=== PATIENT | female | born 1985 | race Caucasian/White ===

== ENCOUNTER 2017-07-06 12:39 | Emergency (ER) | payer OTHER ==
[~2017-07-06] VITALS: Ht 180.3 cm; Wt 68.0 kg
[~2017-07-06 12:39] MED LIST: ACETAMINOPHEN325 M1 PO; AZITHROMYCIN250 MG PO; BACTRIM DS TAB1 EACH PO; CELEXA20 MG PO; CEPHALEXIN500 MG PO; CITALOPRAM HBR20 MG PO; CITALOPRAM HBR40 MG PO; CYCLOBENZAPRINE10 MG PO; DAYPRO600 MG PO; DOXYCYCLINE HY100 MG PO; FLEXERIL10 MG PO; FLONASE ALLERG9.9 ML NS; GABAPENTIN300 MG PO; IBUPROFEN600 MG PO; KEFLEX500 MG PO; MIRTAZAPINE15 MG PO; NAPROXEN500 MG PO; NEURONTIN100 MG PO; NORCO 5-325 TA1 EACH PO; PENICILLIN V P500 MG PO; PERCOCET 5-3251 EACH PO; PRENA1 TRUE CO1 EACH PO; PROMETHAZINE HC25 M1 PO; PYRIDIUM200 MG PO; ROBAXIN-750750 MG PO; SOMA350 MG PO; TRAMADOL HCL50 MG PO; TYLENOL WITH C1 EACH PO; ULTRAM50 MG PO; VICODIN 5-3001 EACH PO; ZOFRAN ODT8 MG PO
[2017-07-06] MEDS ORDERED: ZOFRAN ODT4 MG PO (14:03)
== END 2017-07-06 14:25 | disposition home or self-care (01) ==
LOC: ED 12:39
DX: R11.2 Nausea with vomiting, unspecified (principal); F32.9 Major depressive disorder, single episode, unspecified; F17.200 Nicotine dependence, unspecified, uncomplicated
CPT/HCPCS: 80053; 81001; 82150; 83690; 84703; 85025; 96361; 96374; 96375; 99283; J1170; J2405; J7030

== ENCOUNTER 2018-10-09 09:41 | Emergency (ER) | payer OTHER ==
[~2018-10-09] VITALS: Ht 180.3 cm; Wt 72.6 kg
[~2018-10-09 09:41] MED LIST changes: +AMOXICILLIN500 MG PO; +ZOFRAN ODT4 MG PO
--- OUTSIDE RECORDS SUMMARY | 2018-10-09 09:44 | XMS ---
PreManage Notification: MARILIN HINES Security Registered Mail Clerk Events No recent Security Events currently on file CRITERIA MET - Group Notification - [facility] - Has Care Guidelines - PDMP CARE PROVIDERS PRETTY SCOTT Family Medicine: Sports Medicine 07/07/2018-Current PHONE: Unknown Guidelines Source: [facility] Guidelines Date: 02/26/2017 Care Coordination: ENCOURAGE PATIENT TO USE PCP FOR FOLLOW UP AND NON-EMERGENT PROBLEMS. GIVE PATIENT THIS STOCK PULLER NAME AND NUMBER FOR HELP AND QUESTIONS. MIKE BRADFORD QUALITY ASSURANCE AUDITORTAKE UP SUPERVISOR, [facility] [phone] Roland VISIT COUNT (12 MO.) 2 [facility]. TOTAL 2 NOTE: Visits indicate total known visits. ED/UCC VISIT TRACKING (12 MO.) 10/09/2018 09:42 [facility] [place] TYPE: Emergency COMPLAINT: - R FOOT PAIN/INJURY 07/07/2018 01:13 [facility] [place] TYPE: Emergency COMPLAINT: - DENTAL PAIN DIAGNOSES: - Dental caries, unspecified - Major depressive disorder, single episode, unspecified - Other specified disorders of teeth and supporting structures - Nicotine dependence, unspecified, uncomplicated INPATIENT VISIT TRACKING (12 MO.) No inpatient visits to display in this time frame [email or web address]
== END 2018-10-09 09:59 | disposition home or self-care (01) ==
LOC: ED 09:41
DX: M79.671 Pain in right foot (principal)

== ENCOUNTER 2019-04-07 10:58 | Inpatient (IN) | payer OTHER ==
[~2019-04-07] VITALS: Ht 175.3 cm; Wt 77.0 kg
[~2019-04-07 10:58] MED LIST changes: +VITAFOL-OB+DHA1 EACH PO
--- NOTE | 2019-04-11 10:07 | NUR ---
04/11/19 1007 Sherrie Bruno 0949 PT ARRIVED IN PACU WIDE AWAKE WITH NO C/O'S. BABY TO BREAST. FBC RN AT BEDSIDE HELPING MOM. 1005 SPOUSE AT BEDSIDE. PT BREAST FEEDING BABY.
--- NOTE | 2019-04-12 13:38 | PR ---
[facility] [address] [facility] [place], [place] [address] Signed PP Progress Notes Datetime Report Generated by CPN: 04/12/2019 13:38 SUBJECTIVE: [id number] Pain: Within normal limits Pain Comments: intermittent bilateral neck/shoulder pain last night Nausea/Vomiting: Denies Nausea/Vomiting Comments: emesis x1, wihtout nausea Vital Signs: [id number] Vital Signs: Reviewed; Within Normal Limits Notable Details: PP Hgb/Hct = 10.1/30.0 EXAM: [id number] Abdomen/Uterus: Normal Lochia: Normal Extremities: Normal Incision: Normal IMPRESSION/PLAN/PROCEDURES: [id number] Impression: Normal progression Plan: Continue present management Procedures: None Progress Notes: Doing well, except intermittent bilateral neck/shoulder pain, better when up walking, worse last night, none now, also emesis x1 without warning, no n/v now. Will consintue monitoring, increase activity as tolerated Signing Physician: Leah Pacheco MD Copies: ~ *Electronically Signed* 04/12/19 1338 LEAH PACHECO MD PATIENT NAME: MARILIN HINES PROGRESS NOTE DATE OF : 89 PHYSICIAN: LEAH PACHECO MD RPT #: [id number] REPORT IS CONFIDENTIAL AND NOT TO BE RELEASED WITHOUT AUTHORIZATION
--- NOTE | 2019-04-13 07:30 | PR ---
[facility] [address] [facility] [place], [place] [address] Signed PP Progress Notes Datetime Report Generated by CPN: 04/13/2019 07:30 SUBJECTIVE: [id number] Pain: Within normal limits Pain Comments: intermittent bilateral neck/shoulder pain last night Nausea/Vomiting: Denies Nausea/Vomiting Comments: emesis x1, wihtout nausea Vital Signs: [id number] Vital Signs: Reviewed; Within Normal Limits Notable Details: PP Hgb/Hct = 10.1/30.0 EXAM: [id number] Abdomen/Uterus: Normal Lochia: Normal Extremities: Normal Incision: Normal IMPRESSION/PLAN/PROCEDURES: [id number] Impression: Normal progression Plan: Discharge Procedures: None Progress Notes: Doing well, ready to go home. Signing Physician: Leah Pacheco MD Copies: ~ *Electronically Signed* 04/13/19 0730 LEAH PACHECO MD PATIENT NAME: MARILIN HINES PROGRESS NOTE DATE OF : [birth year] PHYSICIAN: LEAH PACHECO MD RPT #: [id number] REPORT IS CONFIDENTIAL AND NOT TO BE RELEASED WITHOUT AUTHORIZATION
--- NOTE | 2019-04-13 07:40 | OR ---
[facility] [address] [place], [place] [address] Signed DATE OF OPERATION: 04/11/2019 SURGEON: Ray Andrew MD PREOPERATIVE DIAGNOSIS: Term , previous section. POSTOPERATIVE DIAGNOSIS: Term , previous section, lower uterine segment window. PROCEDURE: Repeat low transverse segment section, delivery of live female infant. APPLIANCE REPAIR TECHNICIAN: Dr. Vera. ANESTHESIA: Spinal. ESTIMATED BLOOD LOSS: 550 mL. COMPLICATIONS: None. DRAINS: Hill to bladder. FINDINGS: Live female , weight 6 pounds 0 ounces. Apgars 8 and 9. The uterus had a thin lower uterine segment with round window just to the right of midline approximately size of a quarter and thin bulging wall with clear fluid seen. The rest of the lower uterine segment was thin but not bulging. The rest of the uterus was normal with no adhesions. Both tubes and ovaries were normal. No adhesions. DESCRIPTION OF PROCEDURE: The patient was brought to the operating room, placed in supine position. After adequate spinal anesthesia was obtained, was prepped and draped in usual sterile fashion. A Hill catheter was placed in the bladder. Pfannenstiel skin incision made through previous surgical scar. Subcutaneous tissue was dissected with the Bovie. The Electronically Signed By: RAY ANDREW MD 04/13/19 0740 PATIENT NAME: MARILIN HINES OPERATIVE REPORT DATE OF : [birth year] REPORT #: [id number] PHYSICIAN: RAY ANDREW MD PCP: NO PRIMARY CARE PHYSICIAN REPORT IS CONFIDENTIAL AND NOT TO BE RELEASED WITHOUT AUTHORIZATION [facility] [address] [place], [place] [address] Signed fascia was nicked with scalpel and extended in transverse fashion using curved scissors. The underlying abdominal musculature was bluntly and sharply from the fascia above and below the incision. The abdominal musculature was bluntly and sharply along the midline using Crockett scissors. The peritoneum was grasped, hemostats elevated and nicked with Crockett scissors, extended in vertical fashion using Crockett scissors. The Ramo self-retaining retractor was inserted into the incision and tightened in place. The above findings were noted. The lower uterine segment window was identified and this was gently nicked with immediate opening of the window with a clear fluid coming. The rest of the incision was then opened in transverse fashion using finger dissection. The lower uterine segment again noted to be very thin. The infant was noted to be in ROT vertex presentation. Infant head easily delivered from the incision. The rest of the infant was easily delivered from the incision and the cord doubly clamped and cut. The passed off table in good condition to awaiting nurse. The placenta was manually removed. Uterine cavity explored the lap pad to remove any retained membranes. An angle stitch of 0 Monocryl was placed at one end of the incision and a running locking stitch of 0 Monocryl used to close the incision. The bladder did appear to be well below the thinned area and care was taken to close the thin lower segment, particularly the window. A 2nd running stitch of 0 Monocryl was used to imbricate the 1st layer. Good hemostasis was noted. The entire pelvis was irrigated, suctioned, examined, and small bleeding spots cauterized with the Bovie and good hemostasis was obtained. The Ramo retractor was removed and sheet of ACell placed over lower uterine segment to help with healing. The anterior peritoneum was then closed using running stitch of 2-0 Vicryl suture. Abdominal musculature was reapproximated using interrupted stitches of 0 Vicryl suture. Abdominal wall incision was irrigated, suctioned, examined, and any bleeding spots cauterized with the Bovie. Powdered ACell was sprinkled on the abdominal musculature and then the fascia closed using two running stitches of 0 Vicryl suture meeting in the midline. Subcutaneous tissue was irrigated, suctioned, examined, and any bleeding spots cauterized with the Bovie. The subcutaneous tissue was closed using interrupted stitch of 3-0 Vicryl suture. The skin reapproximated using skin clips. The patient tolerated the procedure well, went to recovery room in good condition. The sponge, needle, and instrument count correct at the end of the procedure. Ray Andrew MD MJLakia/MODL /[id number] Electronically Signed By: RAY ANDREW MD 04/13/19 0740 PATIENT NAME: MARILIN HINES OPERATIVE REPORT DATE OF : [birth year] REPORT #: [id number] PHYSICIAN: RAY ANDREW MD PCP: NO PRIMARY CARE PHYSICIAN REPORT IS CONFIDENTIAL AND NOT TO BE RELEASED WITHOUT AUTHORIZATION [address] [address] Signed Copies: ~ Electronically Signed By: RAY ANDREW MD 04/13/19 0740 PATIENT NAME: MARILIN HINES OPERATIVE REPORT DATE OF : [birth year] REPORT #: [id number] PHYSICIAN: RAY ANDREW MD PCP: NO PRIMARY CARE PHYSICIAN REPORT IS CONFIDENTIAL AND NOT TO BE RELEASED WITHOUT AUTHORIZATION
== END 2019-04-13 11:34 | disposition home or self-care (01) | DRG 787 ==
LOC: FBC 04-11 05:05
PROVIDERS: ADMIT General Practice
PROC: 10D00Z1 Extraction of Products of Conception, Low, Open Approach (ICD-10-PCS; principal; 2019-04-11 06:45)
DX: O34.211 Maternal care for low transverse scar from previous cesarean delivery (principal); O99.324 Drug use complicating childbirth; N85.8 Other specified noninflammatory disorders of uterus; Z37.0 Single live birth; Z3A.39 39 weeks gestation of pregnancy; O32.2XX0 Maternal care for transverse and oblique lie, not applicable or unspecified; O99.89 Other specified diseases and conditions complicating pregnancy, childbirth and the puerperium; M54.2 Cervicalgia; M25.512 Pain in left shoulder; M25.511 Pain in right shoulder; R11.10 Vomiting, unspecified; O99.344 Other mental disorders complicating childbirth; F32.9 Major depressive disorder, single episode, unspecified; F12.90 Cannabis use, unspecified, uncomplicated; O36.5930 Maternal care for other known or suspected poor fetal growth, third trimester, not applicable or unspecified; O28.2 Abnormal cytological finding on antenatal screening of mother
CPT/HCPCS: 01961; 36415; 85027; J0461; J0690; J1170; J2274; J2370; J2590; J2765; J3010; J7120

== ENCOUNTER 2021-11-15 09:21 | Emergency (ER) | payer OTHER ==
[~2021-11-15] VITALS: Ht 175.3 cm; Wt 76.7 kg
[2021-11-15] MEDS ORDERED: ACETAMINOPHEN-1 EAC1 PO (09:42)
[2021-11-15] MEDS ORDERED: PENICILLIN V P500 MG PO (09:42)
== END 2021-11-15 10:04 | disposition home or self-care (01) ==
LOC: ED 09:21
DX: K08.89 Other specified disorders of teeth and supporting structures (principal); Z87.891 Personal history of nicotine dependence; Z79.899 Other long term (current) drug therapy
CPT/HCPCS: 96372; 99282; A9270; J1100

== ENCOUNTER 2022-03-20 07:10 | Inpatient (IN) | payer OTHER ==
[~2022-03-20] VITALS: Ht 180.3 cm; Wt 80.7 kg
[~2022-03-20 07:10] MED LIST changes: +ACETAMINOPHEN-1 EAC1 PO
--- NOTE | 2022-04-02 12:26 | PR ---
[facility] [address] [facility] [place] [address] Signed PP Progress Notes Datetime Report Generated by CPN: 04/02/2022 12:26 SUBJECTIVE: [id number] Pain: Within Normal Limits Nausea/Vomiting: Denies Vital Signs: [id number] Vital Signs: Reviewed; Within Normal Limits Notable Details: PP Hgb/Hct = 8.4/25.2 EXAM: Ongoing Abdomen/Uterus: Normal Lochia: Normal Extremities: Normal Incision: Normal IMPRESSION/PLAN/PROCEDURES: [id number] Impression: Normal Progression Other Impression: PP Anemia Plan: Continue Present Management Procedures: None Progress Notes: Doing well, without complaint, tolerating food well, voiding without difficulty, up moving without problem. Signing Physician: Leah Pacheco MD Copies: ~ *Electronically Signed* 04/02/22 1226 LEAH PACHECO MD PATIENT NAME: MARILIN HINES PROGRESS NOTE DATE OF : [birth year] PHYSICIAN: LEAH PACHECO MD RPT #: [id number] REPORT IS CONFIDENTIAL AND NOT TO BE RELEASED WITHOUT AUTHORIZATION
--- NOTE | 2022-04-03 11:22 | PR ---
[facility] [address] [facility] [place], [place] [address] Signed PP Progress Notes Datetime Report Generated by CPN: 04/03/2022 11:22 SUBJECTIVE: [id number] Pain: Within Normal Limits Nausea/Vomiting: Denies Vital Signs: [id number] Vital Signs: Reviewed; Within Normal Limits Notable Details: PP Hgb/Hct = 8.4/25.2 EXAM: Ongoing Abdomen/Uterus: Normal Lochia: Normal Extremities: Normal Incision: Normal IMPRESSION/PLAN/PROCEDURES: [id number] Impression: Normal Progression Other Impression: PP Anemia Plan: Discharge Procedures: None Progress Notes: Doing well, without complaitn except for some abdominal cramping, feels like needs to have bowel movement. Ready to go home. Signing Physician: Leah Pacheco MD Copies: ~ *Electronically Signed* 04/03/22 112 LEAH PACHECO MD PATIENT NAME: MARILIN HINES PROGRESS NOTE DATE OF : [birth year] PHYSICIAN: LEAH PACHECO MD RPT #: [id number] REPORT IS CONFIDENTIAL AND NOT TO BE RELEASED WITHOUT AUTHORIZATION
--- NOTE | 2022-04-03 12:29 | OR ---
[facility] [address] [place], [place] [address] Signed DATE OF OPERATION: 04/01/2022 SURGEON: Ray Andrew MD PREOPERATIVE DIAGNOSES: 1. Term . 2. Previous section x3. POSTOPERATIVE DIAGNOSES: 1. Term . 2. Previous section x3. PROCEDURES: Repeat low transverse segment section, delivery of live female infant. AGRICULTURE INSTRUCTOR: Amy Bueno DO ANESTHESIA: Spinal. ESTIMATED BLOOD LOSS: 500 mL. COMPLICATIONS: None. DRAINS: Hill to bladder. FINDINGS: Live female infant, Apgars 8 and 9, weight 6 pounds 0 ounces. Normal uterus. Normal tubes and ovaries bilateral. DESCRIPTION OF PROCEDURE: The patient was brought to the operating room, placed in supine position. After adequate spinal anesthesia was obtained, he was prepped and draped in the usual sterile fashion. Hill catheter was placed in the bladder. Pfannenstiel skin incision was made through the previous surgical scar using a scalpel. Subcutaneous tissue was dissected with Bovie and scalpel. The fascia was nicked with scalpel and extended in transverse Electronically Signed By: RAY ANDREW MD 04/03/22 1229 PATIENT NAME: MARILIN HINES OPERATIVE REPORT DATE OF : [birth year] REPORT #: [id number] PHYSICIAN: RAY ANDREW MD PCP: SINAI GUILLNE PA-C REPORT IS CONFIDENTIAL AND NOT TO BE RELEASED WITHOUT AUTHORIZATION [facility] [address] [place], [place] [address] Signed fashion using curved scissors. The underlying abdominal musculature was bluntly and sharply from the fascia above and below the incision. The abdominal musculature was bluntly and sharply along the midline. The peritoneum was grasped with hemostats, elevated, nicked with scissors, extended in a vertical fashion using curved scissors. The Ramo self-retaining retractor was inserted into the incision and tightened in place. The lower uterine segment was identified. The lower uterine segment and the bladder were noted to be well below the lower uterine segment. The lower uterine segment was then nicked with scalpel and extended in transverse fashion using finger dissection, clear fluid came from the incision. The was noted to be in the vertex ROT presentation. head was easily delivered. Nuchal cord was noted to be around the neck once, this was removed and then the rest of the easily delivered from the incision. The cord was doubly clamped and cut. The passed off table in good condition to awaiting nurse. The placenta was manually removed. Uterine cavity explored with a lap pad to remove any retained membranes. An angle stitch of 0-Monocryl was placed at one in the incision and a running locking stitch of 0-Monocryl starting at the other end used to close the incision. A second running stitch of 0-Monocryl was used to imbricate the first layer. Good hemostasis was noted. The entire pelvis was irrigated, suctioned, and examined, and any superficial bleeding spots cauterized with the Bovie. The Ramo self-retaining retractor was then removed and the anterior wall of the peritoneum closed using running stitch of 2-0 Vicryl suture. The abdominal musculature was reapproximated using interrupted stitches of 0-Vicryl suture. The abdominal wall incision was irrigated and suctioned any superficial bleeding spots cauterized with the Bovie. The fascia was then closed using two running stitch of 0-Vicryl suture meeting in the midline. Subcutaneous tissue was irrigated, suctioned, and examined, and any bleeding spots cauterized with the Bovie. Subcutaneous tissue was closed using interrupted stitches of 3-0 Vicryl suture and skin reapproximated using skin clips. The patient tolerated the procedure well, went to the recovery room in good condition. The sponge, needle, and instrument count were correct at the end of the procedures. Ray Andrew MD MJB/MODL /[id number] Electronically Signed By: RAY ANDREW MD 04/03/22 1229 PATIENT NAME: MARILIN HINES OPERATIVE REPORT DATE OF : [birth year] REPORT #: [id number] PHYSICIAN: RAY ANDREW MD PCP: SINAI GUILLEN PA-C REPORT IS CONFIDENTIAL AND NOT TO BE RELEASED WITHOUT AUTHORIZATION [facility] [address] [place] [address] Signed Copies: ~ Electronically Signed By: RAY ANDREW MD 04/03/22 1229 PATIENT NAME: MARILIN HINES OPERATIVE REPORT DATE OF : [birth year] REPORT #: [id number] PHYSICIAN: RAY ANDREW MD PCP: SINAI GUILLEN PA-C REPORT IS CONFIDENTIAL AND NOT TO BE RELEASED WITHOUT AUTHORIZATION
== END 2022-04-03 12:58 | disposition home or self-care (01) | DRG 788 ==
LOC: FBC 04-01 07:04
PROVIDERS: ADMIT General Practice; ATTEND General Practice
PROC: 10D00Z1 Extraction of Products of Conception, Low, Open Approach (ICD-10-PCS; principal; 2022-04-01 09:45)
DX: O34.211 Maternal care for low transverse scar from previous cesarean delivery (principal); O90.81 Anemia of the puerperium; O69.1XX0 Labor and delivery complicated by cord around neck, with compression, not applicable or unspecified; Z37.0 Single live birth; O99.824 Streptococcus B carrier state complicating childbirth; Z87.891 Personal history of nicotine dependence; Z79.899 Other long term (current) drug therapy; Z3A.39 39 weeks gestation of pregnancy
CPT/HCPCS: 36415; 85027; 86850; 86900; 86901; A9270; J0690; J2250; J2274; J2300; J2590; J2704; J3010; J7121

== ENCOUNTER 2022-11-20 05:42 | Day surgery (SDC) | payer OTHER ==
[~2022-11-20] VITALS: Ht 175.3 cm; Wt 73.0 kg
[~2022-11-20 05:42] MED LIST changes: +ONDANSETRON ODT8 MG PO
[2022-11-20] MEDS ORDERED: BUSPIRONE HCL15 MG PO (06:11)
[2022-11-20] MEDS ORDERED: PROZAC40 MG PO (06:11)
[2022-11-20] MEDS ORDERED: VITAMIN D250 MC1 PO (06:12)
[2022-11-20] MEDS ORDERED: VITAMIN D-40010 MCG PO (06:12)
--- NOTE | 2022-11-20 08:22 | NUR ---
11/20/22 0822 Monica Jon 0818- PT ARRIVES TO PACU NONAROUSABLE TO STIMULI WITH AN OPA IN PLACE. RESP EVEN AND UNLABORED. OXYGEN SAT HIGH 90'S TO 100% ON 10L VIA MASK. PT NEEDING A SLIGHT JAW LIFT TO MAINTAIN PATENT AIRWAY.
--- NOTE | 2022-11-20 08:52 | NUR ---
PT IS BACK TO FROM PACU. SHE IS SLEEPING, BUT EASILY AROUSABLE WHEN ASKED A QUESTION. DENIES PAIN AT THIS TIME. CALL LIGHT WITHIN REACH. WATER ON BEDSIDE TABLE. DENIES WANTING A SNACK AT THIS TIME. NO ADDITIONAL NEEDS OR CONCERNS.
--- NOTE | 2022-11-20 10:02 | NUR ---
PT IS STILL SLEEPY. HAS YET TO DRINK WATER OR WANT SOMETHING TO SNACK ON. SHE DENIES PAIN. CALL LIGHT STILL WITHIN REACH. DC CRITERIA IS REVIEWED WITH PT.
--- NOTE | 2022-11-20 10:51 | NUR ---
LE 1050 PATIENT ALERT AND ORIENTED. BREATHING EQUAL AND UNLABORED. OXYGEN SATURATIONS 90% ON ROOM AIR. PATIENT HEAD ELEVATED. PATIENT DENIES PAIN AND BEING NAUSEATED. PATIENT HAS SHADOWING ON ANABEL PAD. SMALL AMOUNT OF RED DRAINAGE. IVF INFUSING. SCD'S ON. PATIENT GIVEN PUDDING AND WATER. NO QUESTIONS AT THIS TIME. CALL LIGHT WITHIN REACH NO FUTHER NEEDS.
--- NOTE | 2022-11-20 12:21 | NUR ---
PT IS GIVEN VERBAL AND WRITTEN DC INSTRUCTIONS. SHE VERBALIZES UNDERSTANDING. SHE HAS NO QUESTIONS AT THIS TIME. SHE IS TAKEN TO PERSONAL VEHICLE VIA WC, WHERE SHE TRANSFERS HERSELF WITHOUT ISSUES.
--- NOTE | 2022-11-20 12:42 | OR ---
[facility] [address] [place], [place] [address] Signed DATE OF OPERATION: 11/20/2022 SURGEON: Ray Andrew MD The patient of Dr. Andrew. PREOPERATIVE DIAGNOSIS: CIN3, high grade squamous intraepithelial lesion. POSTOPERATIVE DIAGNOSIS: CIN3, high grade squamous intraepithelial lesion. PROCEDURE: Loop electrical excision procedure. ANESTHESIA: General. ESTIMATED BLOOD LOSS: 10 mL. COMPLICATIONS: None. DRAINS: None. FINDINGS: Cervix small, thick, closed, no lesions seen. There was a small ( 2 mm) mildly acetowhite area right at the cervical os onthe posterior lip of the cervix. Lugol's solution stained everything but that same area right at the opening the cervical os was very small, so difficult to see if this went further into the canal. DESCRIPTION OF PROCEDURE: The patient was brought to the operating room, placed in the supine position. After adequate general anesthesia was obtained, she was placed in dorsal lithotomy position, prepped and draped in usual sterile fashion. A coated speculum with suction placed in the vagina and the cervix identified. Colposcope was used to view the cervix and plan the LEEP. The above findings were noted. 5 ml's of 1% Lidoaine with Epinephrine was Electronically Signed By: RAY ANDREW MD 11/20/22 1242 PATIENT NAME: MARILIN HINES OPERATIVE REPORT DATE OF : [birth year] REPORT #: [id number] PHYSICIAN: RAY ANDREW MD PCP: SINAI GUILLEN PA-C REPORT IS CONFIDENTIAL AND NOT TO BE RELEASED WITHOUT AUTHORIZATION [facility] [address] [place], [place] [address] Signed injected circufrentially into the cervix. A 15 mm loop electrode was used on blending current and the midportion of the cervix removed in one piece easily incorporating the entire squamocolumnar junction. A 2nd 10 mm loop was used to get the piece further down the canal again in one piece. First was labeled cervix, 2nd labeled endocervix. Curette was then used to curette the remaining portion of the cervical canal and this was sent as ECC. Ball electrode was then used to cauterize the area of excision. Good hemostasis was noted. The cervical biopsy site was then covered in Monsel's solution to help further hemostasis. The patient tolerated the procedure well, went to recovery room in good condition. The sponge and instrument count were correct at the end of the procedure. The cervix, endocervix and ECC specimens were sent to Pathology for identification. MD MARLEE Eagle/MODL /[id number] Copies: ~ Electronically Signed By: RAY ANDREW MD 11/20/22 1242 PATIENT NAME: MARILIN HINES OPERATIVE REPORT DATE OF : [birth year] REPORT #: [id number] PHYSICIAN: RAY ANDREW MD PCP: SINAI GUILLEN PA-C REPORT IS CONFIDENTIAL AND NOT TO BE RELEASED WITHOUT AUTHORIZATION
--- NOTE | 2022-11-20 13:37 | NUR ---
PT WOKE TO THE SOUND OF MY VOICE, SHE IS PLEASANT, SAID SHE FEELS INFORMED. REQUESTED WARM BLANKET, [employer]SHA [employer]AY WILL SUPPLY. GAVE BLESSING
--- NOTE | 2022-11-25 12:06 | PATH ---
[facility] [address] [facility] [place], [place] [address] Signed SPECIMEN(S): A CERVIX SPECIMEN(S): B ENDOCERVIX SPECIMEN(S): C ENDOCERVICAL CURETTINGS SPECIMEN SOURCE: A. CERVIX B. ENDOCERVIX C. ENDOCERVICAL CURETTINGS CLINICAL HISTORY: MAGO 3, HGSIL FINAL PATHOLOGIC DIAGNOSIS: A. Cervix: - Low grade squamous intraepithelial lesion (mild squamous dysplasia, MAGO 1), free of the margins on these sections. B. Endocervix: - Benign endocervical mucosa, negative for dysplasia. C. Endocervical curettings: - Benign endocervical mucosa, negative for dysplasia. COMMENT: The most recent cervical biopsy and cervical cytology studies from 06/06/22 ([id number], HGSIL, High Risk HPV+) and biopsies with HGSIL are noted. There is no evidence of residual HGSIL on these sections. Clinical correlation is requested. JVR:joseph:C2NR MICROSCOPIC EXAMINATION: Histologic sections of all submitted blocks are examined by light microscopy. These findings, together with the gross examination, support the pathologic diagnosis. A p16 immunostain is performed with appropriate controls on block (A3) and is negative for full thickness epithelial staining supporting the diagnosis. GROSS DESCRIPTION: A. The specimen, labeled and designated "LoganNathaniel, " and designated on the requisition "cervix," is received in formalin and consists of a 1.6 x 1.3 x 1.1 cm unoriented cervix. A defect is present along one aspect and is arbitrarily designated 12 o'clock. The mucosal surface is pale pink and smooth. The specimen is entirely submitted in four cassettes. PATIENT NAME: MARILIN HINES PATHOLOGY DATE OF : 89 REPORT #: [id number] PHYSICIAN: LEE REDDY PCP: SINAI GUILLEN PA-C REPORT IS CONFIDENTIAL AND NOT TO BE RELEASED WITHOUT AUTHORIZATION [facility] [address] [place], [place] [address] Signed Cassette Summary: (A1) 12 to 3 o'clock (A2) 3 to 6 o'clock (A3) 6 to 9 o'clock (A4) 9 to 12 o'clock B. The specimen, labeled and designated "LoganNathaniel, " and designated on the requisition "endocervix," is received in formalin and consists of a 1.5 x 0.9 x 0.7 cm unoriented portion of cervix. The specimen is partially surfaced by pink granular mucosa with attached mucoid material. The specimen is inked, sectioned, and entirely submitted in (B1). C. The specimen, labeled and designated "LoganNathaniel, " and designated on the requisition "ECC," is received in formalin and consists of a 1.6 x 1.3 x 0.3 cm aggregate of scanty red soft tissue with admixed mucoid material. The specimen is entirely submitted in (C1). FB (under the direct supervision of a pathologist) The Gross Description was prepared using a voice recognition system. The report was reviewed for accuracy; however, sound-alike word errors, addition and/or deletions may occur. If there is any question about this report, please contact Client Services. PERFORMING LABORATORY: The technical component was performed by [facility], [address] [place] [id number] (CLIA# [id number]). Professional interpretation was performed by [facility], [address] [place] [address], [place] [address] (CLIA#: [id number]). Diagnostician: Sumit Mcgraw MD Pathologist Electronically Signed 11/25/2022 Copies: ~ PATIENT NAME: MARILIN HINES PATHOLOGY DATE OF : [birth year] REPORT #: [id number] PHYSICIAN: LEE PATHOLOGY PCP: SINAI GUILLEN PA-C REPORT IS CONFIDENTIAL AND NOT TO BE RELEASED WITHOUT AUTHORIZATION
== END 2022-11-20 12:20 | disposition home or self-care (01) ==
LOC: OPS 05:42 → DS 05:42 → OPS 07:30 → DS 07:30 → OPS 12:20
PROVIDERS: ATTEND General Practice
PROC: 0UBC7ZX Excision of Cervix, Via Natural or Artificial Opening, Diagnostic (ICD-10-PCS; principal; 2022-11-20 07:30)
DX: N87.0 Mild cervical dysplasia (principal); Z87.891 Personal history of nicotine dependence
CPT/HCPCS: 00940; 36415; 84703; 85025; J1100; J1885; J2250; J2405; J2704; J2765; J3010; J7121

== ENCOUNTER 2024-05-24 07:49 | Day surgery (SDC) | payer OTHER ==
[2024-05-17 15:53] VITALS: BP 119/78
[~2024-05-24] VITALS: Ht 175.3 cm; Wt 80.5 kg
[~2024-05-24 07:49] MED LIST changes: +BUSPIRONE HCL15 MG PO; +IBLOOD GLUCOSE TEST STRIP 1 EA TEST VI PRN; +LACTATED RINGER'S 1,000 ML IV SCH; +LIDOCAINE HCL 1% 5 ML SDV INJ ONE; +PROZAC40 MG PO; +VITAMIN D-40010 MCG PO; +VITAMIN D250 MC1 PO
[2024-05-24 08:29] VITALS: BP 116/65
[2024-05-24] MEDS ORDERED: fentaNYL citrate 100 MCG/2 ML VIAL ONE (08:44)
[2024-05-24] MEDS ORDERED: KETAMINE in NS 50 MG/5 ML SYR ONE (08:44)
[2024-05-24] MEDS ORDERED: KETOROLAC TROMETHAMINE 30 MG/ML VIAL ONE (08:45)
[2024-05-24] MEDS ORDERED: ROCURONIUM BROMIDE 50 MG/5 ML SYR ONE (08:45)
[2024-05-24] MEDS ORDERED: ondansetron HCL 4 MG/2 ML VIAL ONE (08:45)
[2024-05-24] MEDS ORDERED: DEXAMETHASONE SOD PHOS 4 MG/ML VIAL ONE (08:45)
[2024-05-24] MEDS ORDERED: propofoL 200 MG/20 ML VIAL ONE (08:45)
[2024-05-24] MEDS ORDERED: ACETAMINOPHEN 1,000 MG/100 ML VIAL ONE (08:45)
[2024-05-24] MEDS ORDERED: LIDOCAINE HCL 2% 5 ML SDV ONE (08:45)
[2024-05-24] MEDS ORDERED: SEVOFLURANE 250 ML BTL INH ONE (09:27)
[2024-05-24] MEDS ORDERED: SUGAMMADEX SODIUM 200 MG/2 ML ML ONE (10:37)
[2024-05-24] MEDS ORDERED: fentaNYL citrate 50 MCG/ML SDV IV PRN (10:45)
[2024-05-24] MEDS ORDERED: ondansetron HCL 4 MG/2 ML VIAL IV PRN ×2 (10:45→11:15)
[2024-05-24] MEDS ORDERED: IBLOOD GLUCOSE TEST STRIP 1 EA TEST VI PRN (10:45)
[2024-05-24] MEDS ORDERED: NALOXONE HCL 0.4 MG SYR IV PRN ×2 (10:45→11:15)
[2024-05-24 11:10] VITALS: BP 124/76
[2024-05-24] MEDS ORDERED: METOCLOPRAMIDE HCL 10 MG/2 ML SDV IV PRN (11:15)
[2024-05-24] MEDS ORDERED: MORPHINE SULFATE 10 MG/ML VIAL IV PRN (11:15)
[2024-05-24] MEDS ORDERED: FAMOTIDINE 20 MG/ 2 ML VIAL IV PRN (11:15)
[2024-05-24] MEDS ORDERED: SIMETHICONE 125 MG TABLET CHEWABLE PO PRN (11:15)
[2024-05-24] MEDS ORDERED: OXYCODONE/APAP 5/325 TAB PO PRN (11:15)
--- NOTE | 2024-05-24 11:19 | NUR ---
PT ARRIVED BACK TO DAY SURGERY VIA STRETCHER. ORIENTED TO ROOM AND CALL LIGHT. PT HAS 3 LAB SITES TO ABDOMEN. C/D/I. ANABEL PAD IN PLACE. PT RATING PAin 5/10 IN ABDOMEN AT THIS TIME. PT DENIES NAUSEA. FRESH WATER GIVEN.
--- NOTE | 2024-05-24 11:22 | NUR ---
05/24/24 1122 Sherrie Bruno 1048 PT ARRIVED IN PACU SLEEPY WITH NO C/O'S. 1100 GLASSES RETURNED TO PT. NO C/O'S. 1110 TO DS. PT'S CELL PHONE AND CALL LIGHT IN PLACE. 1115 REPORT GIVEN TO RN. ROULA AND SHUO GIVEN TO PT.
[2024-05-24 12:09] VITALS: BP 119/74
--- NOTE | 2024-05-24 12:38 | NUR ---
1200-PT MOVES SELF TO SIDE OF BED. PT FEELING A LITTLE DIZZY. 1203-PT AMBULATES WITH 1 RN ASSIST TO RESTROOM. GAIT STEADY AND TOLERATED WELL. PT VOIDS 50ML. 1205-PT BACK TO ROOM. PT STATES "LEGS FEEL LIKE JELLO" AND STATES SMALL AMOUNT OF NAUSEA. PROVIDED PT WITH CRACKERS. NO OTHER NEEDS AT THIS TIME. CALL LIGHT WITHIN REACH. 1215-VO PER DR. SCOTT PT CAN BE D/C WHEN READY. 1225-PT STATES CRACKERS HELPED WITH NAUSEA. CALL LIGHT WITHIN REACH.
[2024-05-24 13:13] VITALS: BP 118/83
--- NOTE | 2024-05-24 15:27 | NUR ---
1310-PT IS DRESSED SITTING IN BED. PT HAS CONTACTED BOYFRIEND AND HE IS AT THE FRONT DOORS WAITING. 1315-WENT OVER DISCHARGE INSTRUCTIONS WITH PT. ALL QUESTIONS ANSWERED. PT AMBULATES TO WHEELCHAIR AND RIDE PROVIED TO FRONT OF HOSPITAL WHERE BOYFRIEND WAS WAITING WITH THE CAR.
== END 2024-05-24 13:19 | disposition home or self-care (01) ==
LOC: DS 07:49
PROVIDERS: ATTEND Obstetrics & Gynecology
PROC: 0UT78ZZ Resection of Bilateral Fallopian Tubes, Via Natural or Artificial Opening Endoscopic (ICD-10-PCS; principal; 2024-05-24 10:00)
DX: Z40.03 Encounter for prophylactic removal of fallopian tube(s) (principal); Z87.891 Personal history of nicotine dependence
CPT/HCPCS: 00840; 88302; J0131; J1100; J1885; J2001; J2405; J2704; J3010; J3490; J7121